=== PATIENT | female | born 2000 | race African-American/Black ===

== ENCOUNTER 2018-05-02 12:34 | Emergency (ER) | payer MEDICAID ==
[~2018-05-02] VITALS: Ht 157.5 cm; Wt 54.4 kg
[2018-05-02 12:52] VITALS: BP 107/55
--- NOTE | 2018-05-02 15:30 | NUR ---
PATIENT PRESENTS TO ED WITH THE CHIEF C/O THROAT PAIN, RUNNY NOSE AND GENERALIZED BODY PAIN FOR A WEEK. PT DENIES ANY FEVER. DENIES N/V/D. SKIN IS PINK/WARM/DRY. AAOX4 WITH EVEN AND STEADY GAIT. LUNGS CLEAR BL; HR EVEN AND REGULAR. PT DENIES ANY CP, SOB, OR COUGH AT THIS TIME; PATIENT STATES PAIN OF 5/10 AT THIS TIME; VSS; PATIENT POSITIONED FOR COMFORT; HOB ELEVATED; BEDRAILS UP X2; BED DOWN. ER MD MADE AWARE OF PT STATUS.
--- NOTE | 2018-05-02 17:05 | NUR ---
REPORT GIVEN TO
[2018-05-02 17:30] VITALS: BP 119/62
--- NOTE | 2018-05-02 17:30 | NUR ---
Patient discharged with v/s stable. Written and verbal after care instructions given and explained. Patient alert, oriented and verbalized understanding of instructions. Ambulatory with steady gait. All questions addressed prior to discharge. ID band removed. Patient advised to follow up with PMD. Rx of CEPACOL SORE THROAT 15MG-3.6MG LOZENGE, PROMETHAZINE DM 6.25MG-15MG/5ML AND ACETAMINOPHEN 500MG given. Patient educated on indication of medication including possible reaction and side effects. Opportunity to ask questions provided and answered.
== END 2018-05-02 17:30 | disposition home or self-care (01) ==
LOC: MED 12:34
DX: J06.9 Acute upper respiratory infection, unspecified (principal); J45.909 Unspecified asthma, uncomplicated
CPT/HCPCS: 36415; 87804; 99283

== ENCOUNTER 2018-08-28 14:07 | Emergency (ER) | payer MEDICAID ==
[~2018-08-28] VITALS: Ht 157.5 cm; Wt 52.7 kg
[2018-08-28 14:14] VITALS: BP 118/79
--- NOTE | 2018-08-28 14:19 | NUR ---
TO BED 12 WITH STEADY GAIT
--- NOTE | 2018-08-28 14:31 | NUR ---
18 year old female brought in by self c/o burning and irritation upon urination x2days. Patient was able to void. Urine is yellow and clear. Denies any pain, N/V/D or abdominal discomfort. Patient requested STD check. Medhx: sciatic nerve and trigeminal nerve pain. Patient in bed, lowest position, HOB elevated with bedrail up x1. Waiting for MD to evaluate patient.
--- NOTE | 2018-08-28 15:36 | NUR ---
LOKI WATERS ON PELVIC EXAM BY [facility]K. PT TOLEATED PROCEDURE WELL. SENT SPECIMEN TO LAB.
[2018-08-28 16:34] VITALS: BP 100/74
[2018-08-30 12:47] LABS: CHLAMYDIA TRACHOMATIS AMP DNA POSITIVE (NEGATIVE)
== END 2018-08-28 16:34 | disposition home or self-care (01) ==
LOC: MED 14:07
DX: N39.0 Urinary tract infection, site not specified (principal); Z11.3 Encounter for screening for infections with a predominantly sexual mode of transmission; A74.9 Chlamydial infection, unspecified; M54.40 Lumbago with sciatica, unspecified side; J45.909 Unspecified asthma, uncomplicated
CPT/HCPCS: 36415; 81002; 81025; 87086; 87186; 87210; 87491; 99283

== ENCOUNTER 2019-04-04 09:28 | Emergency (ER) | payer MEDICAID ==
[~2019-04-04] VITALS: Ht 161.3 cm; Wt 55.0 kg
[2019-04-04 10:15] VITALS: BP 133/85
--- NOTE | 2019-04-04 10:25 | NUR ---
TRIAGE COMPLETE. RETURNED TO [facility] AWAITNG BED IN ED.
--- NOTE | 2019-04-04 11:13 | NUR ---
PT TO ER BED 12
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
[2019-04-04 12:08] VITALS: BP 133/85
--- NOTE | 2019-04-04 12:09 | NUR ---
Patient discharged with v/s stable. Written and verbal after care instructions given and explained. Patient alert, oriented and verbalized understanding of instructions. Ambulatory with steady gait. All questions addressed prior to discharge. ID band removed. Patient advised to follow up with PMD. Rx of FLEXERIL, IBUPROFEN given. Patient educated on indication of medication including possible reaction and side effects. Opportunity to ask questions provided and answered.
== END 2019-04-04 12:09 | disposition home or self-care (01) ==
LOC: MED 09:28
DX: M25.511 Pain in right shoulder (principal); J45.909 Unspecified asthma, uncomplicated; F12.90 Cannabis use, unspecified, uncomplicated
CPT/HCPCS: 73030; 99283

== ENCOUNTER 2019-05-27 12:59 | Emergency (ER) | payer MEDICAID ==
[~2019-05-27] VITALS: Ht 157.5 cm; Wt 52.8 kg
[2019-05-27 13:23] VITALS: BP 99/75
[2019-05-27 14:20] VITALS: BP 99/75
--- NOTE | 2019-05-27 14:20 | NUR ---
Patient discharged with v/s stable. Written and verbal after care instructions given and explained. Patient alert, oriented and verbalized understanding of instructions. with steady gait. All questions addressed prior to discharge. ID band removed. Patient advised to follow up with PMD. Rx of ALBUTEROL/ TYLENOL/MOTRIN given. Patient educated on indication of medication including possible reaction and side effects. Opportunity to ask questions provided and answered.
== END 2019-05-27 14:20 | disposition home or self-care (01) ==
LOC: MED 12:59
DX: J06.9 Acute upper respiratory infection, unspecified (principal); J45.909 Unspecified asthma, uncomplicated
CPT/HCPCS: 99283